=== PATIENT | male | born 1980 | race Two or more races ===

== ENCOUNTER 2018-03-01 15:45 | Outpatient (CLI) | payer OTHER ==
[~2018-03-01 15:45] MED LIST: DICLOFENAC SODI50 MG PO
== END 2018-03-01 16:01 | disposition home or self-care (01) ==
LOC: RAD 501 15:45
DX: Z00.00 Encounter for general adult medical examination without abnormal findings (principal); R22.1 Localized swelling, mass and lump, neck; M25.562 Pain in left knee

== ENCOUNTER 2018-03-28 11:12 | Outpatient (CLI) | payer OTHER ==
[~2018-03-28] VITALS: Ht 154.9 cm; Wt 77.1 kg
== END 2018-03-28 11:30 | disposition home or self-care (01) ==
LOC: OFIC 805 11:12
DX: K11.8 Other diseases of salivary glands (principal)

== ENCOUNTER 2018-04-10 08:14 | Outpatient (CLI) | payer OTHER | END 2018-04-10 16:04 | disposition home or self-care (01) | LOC: TOM 08:14 | DX: K11.9 Disease of salivary gland, unspecified (principal) ==

== ENCOUNTER 2018-04-16 13:04 | Outpatient (CLI) | payer OTHER ==
[~2018-04-16] VITALS: Ht 152.4 cm; Wt 77.1 kg
== END 2018-04-16 13:20 | disposition home or self-care (01) ==
LOC: OFIC 805 13:04
DX: K11.8 Other diseases of salivary glands (principal)

== ENCOUNTER 2018-04-19 09:00 | Outpatient (CLI) | payer OTHER | END 2018-04-19 09:02 | disposition home or self-care (01) | LOC: SONOGRAMA 09:00 | DX: K11.8 Other diseases of salivary glands (principal) ==

== ENCOUNTER 2018-04-30 14:39 | Outpatient (CLI) | payer OTHER ==
[~2018-04-30] VITALS: Ht 152.4 cm; Wt 77.1 kg
== END 2018-04-30 15:00 | disposition home or self-care (01) ==
LOC: OFIC 805 14:39
DX: J30.89 Other allergic rhinitis (principal); D11.0 Benign neoplasm of parotid gland

== ENCOUNTER 2020-02-06 09:04 | Outpatient (CLI) | payer OTHER | END 2020-02-06 09:13 | disposition home or self-care (01) | LOC: SONOGRAMA 09:04 | PROVIDERS: ATTEND Pathology Anatomic Pathology & Clinical Pathology | DX: D11.0 Benign neoplasm of parotid gland (principal) ==

== ENCOUNTER 2022-04-13 23:57 | Emergency (ER) | payer OTHER ==
[~2022-04-13] VITALS: Ht 180.3 cm; Wt 86.2 kg
[2022-04-14] MEDS ORDERED: NORFLEX100MG PO (14:20)
[2022-04-14] MEDS ORDERED: KETO10TA2 PO (14:20)
== END 2022-04-14 | disposition left against medical advice (07) ==
LOC: ER 23:57
DX: Z53.21 Procedure and treatment not carried out due to patient leaving prior to being seen by health care provider (principal)

== ENCOUNTER 2022-04-14 10:33 | Emergency (ER) | payer OTHER ==
[~2022-04-14] VITALS: Ht 180.3 cm; Wt 86.2 kg
[2022-04-14] MEDS ORDERED: NORFLEX100MG PO (14:20)
[2022-04-14] MEDS ORDERED: KETO10TA2 PO (14:20)
== END 2022-04-14 14:30 | disposition home or self-care (01) ==
LOC: ER 10:33
DX: S00.81XA Abrasion of other part of head, initial encounter (principal); V43.52XA Car driver injured in collision with other type car in traffic accident, initial encounter; Y93.9 Activity, unspecified; Y92.413 State road as the place of occurrence of the external cause; S69.92XA Unspecified injury of left wrist, hand and finger(s), initial encounter; S89.91XA Unspecified injury of right lower leg, initial encounter; Z91.013 Allergy to seafood

== ENCOUNTER 2022-07-13 09:49 | Outpatient (CLI) | payer OTHER ==
[~2022-07-13 09:49] MED LIST changes: +KETO10TA2 PO; +NORFLEX100MG PO
== END 2022-07-13 10:05 | disposition home or self-care (01) ==
LOC: NUCLEAR 09:49
DX: R00.2 Palpitations (principal)